=== PATIENT | female | born 1995 ===

== ENCOUNTER 2017-11-19 08:05 | Inpatient (IN) | payer OTHER ==
[~2017-11-19] VITALS: Ht 152.4 cm; Wt 78.5 kg
[2017-11-19] MEDS ORDERED: PRENATABS RX T1 EACH PO (13:20)
== END 2017-11-22 10:16 | DRG 767 ==
LOC: OBS/DEL 08:05 → OB/GYN 11:11 → LDR 11:11 → OB/GYN 12:53
PROVIDERS: Obstetrics & Gynecology
PROC: 10E0XZZ Delivery of Products of Conception, External Approach (ICD-10-PCS; principal; 2017-11-19)
PROC: 4A1HXCZ Monitoring of Products of Conception, Cardiac Rate, External Approach (ICD-10-PCS; 2017-11-19)
PROC: 0UB50ZZ Excision of Right Fallopian Tube, Open Approach (ICD-10-PCS; 2017-11-20)
PROC: BW40ZZZ Ultrasonography of Abdomen (ICD-10-PCS; 2017-11-20)
PROC: BW4GZZZ Ultrasonography of Pelvic Region (ICD-10-PCS; 2017-11-20)
PROC: 0UB60ZZ Excision of Left Fallopian Tube, Open Approach (ICD-10-PCS; 2017-11-20 08:00)
DX: O80 Encounter for full-term uncomplicated delivery (principal); O99.63 Diseases of the digestive system complicating the puerperium; Z3A.38 38 weeks gestation of pregnancy; Z37.0 Single live birth; Z30.2 Encounter for sterilization